=== PATIENT | male | born 1995 | race Caucasian/White ===

== ENCOUNTER 2016-11-30 15:49 | Emergency (ER) | payer SELFPAY ==
[~2016-11-30] VITALS: Ht 185.4 cm; Wt 77.0 kg
[2016-11-30 15:57] VITALS: BP 134/79
== END 2016-12-01 05:29 | disposition left against medical advice (07) ==
LOC: ER 15:57
DX: M25.511 Pain in right shoulder (principal); M54.9 Dorsalgia, unspecified; Z88.2 Allergy status to sulfonamides